=== PATIENT | male | born 2000 | race Caucasian/White ===

== ENCOUNTER 2020-04-23 12:38 | Emergency (ER) | payer OTHER ==
[~2020-04-23] VITALS: Ht 177.8 cm; Wt 95.3 kg
== END 2020-04-23 15:54 | disposition home or self-care (01) ==
LOC: ED 12:38
DX: M54.5 Low back pain (principal)
CPT/HCPCS: 99283

== ENCOUNTER 2020-08-09 18:21 | Emergency (ER) | payer OTHER ==
[~2020-08-09] VITALS: Ht 177.8 cm; Wt 95.3 kg
[2020-08-09] MEDS ORDERED: DICLOFENAC SODI75 MG PO (21:47)
== END 2020-08-09 22:10 | disposition home or self-care (01) ==
LOC: ED 18:21
DX: M77.8 Other enthesopathies, not elsewhere classified (principal)
CPT/HCPCS: 73110; 99283-25

== ENCOUNTER 2021-12-31 14:03 | Emergency (ER) | payer OTHER ==
[~2021-12-31] VITALS: Ht 177.8 cm; Wt 95.2 kg
--- NOTE | ~2021-12-31 | EKG ---
[facility] [address] [facility] [place], [place] [address] Draft EK completed, results pending confirmation PATIENT NAME: MORRELLFRANCES Electrocardiogram DATE OF : [birth year] PHYSICIAN: PRELIMINARY REPORT #: [id number] REPORT IS CONFIDENTIAL AND NOT TO BE RELEASED WITHOUT AUTHORIZATION
[~2021-12-31 14:03] MED LIST: DICLOFENAC SODI75 MG PO
== END 2021-12-31 16:02 | disposition home or self-care (01) ==
LOC: ED 14:03
DX: B34.9 Viral infection, unspecified (principal); Z20.822 Contact with and (suspected) exposure to COVID-19
CPT/HCPCS: 87502; 93005; 93010; A9270; U0003

== ENCOUNTER 2022-03-20 08:05 | Emergency (ER) | payer BC ==
[~2022-03-20] VITALS: Ht 177.8 cm; Wt 95.2 kg
== END 2022-03-20 09:06 | disposition home or self-care (01) ==
LOC: ED 08:05
DX: S39.012A Strain of muscle, fascia and tendon of lower back, initial encounter (principal); X50.0XXA Overexertion from strenuous movement or load, initial encounter
CPT/HCPCS: A9270; J1885